=== PATIENT | male | born 1980 | race Two or more races ===

== ENCOUNTER 2025-02-16 06:10 | Inpatient (IN) | payer MEDICAID, OTHER ==
[~2025-02-16] VITALS: Ht 165.1 cm; Wt 85.1 kg
--- NOTE | 2025-02-16 07:04 | ED.PDOC ---
History of Present Illness HPI Comments 44-year-old male presents to the ER with a prior medical history of hypertension and a chief complaint of abdominal pain. Recurrent reports on having LLQ pain with nausea. Patient notes that he had a bowel movement yesterday but not today. Patient states on the pain only starting today but has been worsening. Patient's pressure in triage was 166/86. Denies chills, fever, /V/D, SOB, CP. No other associated symptoms, modifiers, recent injuries or sick contacts present at this time. Chief Complaint: Abdominal Pain Time Seen by MD: 06:45 Reviewed Notes: Nurses Notes, Medications, Allergies Information Source: Patient Mode of Arrival: Ambulatory Severity: Moderate Timing: Hours Duration: Since onset, Hours Prehospital treatment: None Past Medical History PAST MEDICAL HISTORY: HTN Surgical History: Denies all surgeries Family History Family History: Reviewed,noncontributory to illness, Unknown Social History Smoker: Non-Smoker Alcohol: Denies ETOH Use Drugs: Denies Drug Use Lives In: Home Constitutional: denies: chills, diaphoresis, fatigue, fever, malaise, sweats, weakness, others EENTM: denies: blurred vision, double vision, ear bleeding, ear discharge, ear drainage, ear pain, ear ringing, eye pain, eye redness, hearing loss, mouth pain, mouth swelling, nasal discharge, nose bleeding, nose congestion, nose pain, photophobia, tearing, throat pain, throat swelling, voice changes, others Respiratory: denies: cough, hemoptysis, orthopnea, SOB at rest, shortness of breath, SOB with excertion, stridor, wheezing, others Cardiovascular: denies: chest pain, dizzy spells, diaphoresis, Dyspnea on exertion, edema, irregular heart beat, left arm pain, lightheadedness, palpitations, PND, syncope, others Gastrointestinal: reports: abdominal pain, nausea; denies: abdomen distended, blood streaked bowels, constipated, diarrhea, dysphagia, difficulty swallowing, hematemesis, melena, poor appetite, poor fluid intake, rectal bleeding, rectal pain, vomiting, others Genitourinary: denies: burning, dysuria, flank pain, frequency, hematuria, incontinence, penile discharge, penile sore, pain, testicle pain, testicle swelling, urgency, others Neurological: denies: dizziness, fainting, headache, left sided numbness, left sided weakness, numbness, paresthesia, pre-existing deficit, right sided numbness, right sided weakness, seizure, speech problems, tingling, tremors, weakness, others Musculoskeletal: denies: back pain, gout, joint pain, joint swelling, muscle pain, muscle stiffness, neck pain, others Integumetry: denies: bruises, change in color, change in hair/nails, dryness, laceration, lesions, lumps, rash, wounds, others Allergic/Immunocompromised: denies: Difficulty Healing, Frequent Infections, Hives, Itching, others Hematologic/Lymphatic: denies: anemia, blood clots, easy bleeding, easy bruising, swollen glands, others Endocrine: denies: excessive hunger, excessive sweating, excessive thirst, excessive urination, flushing, intolerance to cold, intolerance to heat, unexplained weight gain, unexplained weight loss, others Psychiatric: denies: anxiety, bipolar disorder, depression, hopeless, panic disorder, schizophrenia, sleepless, suicidal, others All Other Systems: Reviewed and Negative Physical Exam General Appearance: Moderate Distress, Normal HEENT: Normal ENT Inspection, Pharynx Normal, TMs Normal Neck: Full Range of Motion, Non-Tender, Normal, Normal Inspection Respiratory: Chest Non-Tender, Lungs Clear, No Accessory Muscle Use, No Respiratory Distress, Normal Breath Sounds Cardiovascular: No Edema, No JVD, No Murmur, No Gallop, Normal Peripheral Pulses, Regular Rate/Rhythm Breast Exam: Deferred Gastrointestinal: No Organomegaly, Non Tender, No Pulsatile Mass, Normal Bowel Sounds, Soft Genitalia: Deferred Pelvic: Deferred Rectal: Deferred Extremities: No calf tenderness, Normal capillary refill, Normal inspection, Normal range of motion, Non-tender, No pedal edema Musculoskeletal : Apperance: Normal Neurologic: Alert, vp of global marketing II-XII nml as Tested, No Motor Deficits, Normal Affect, Normal Mood, No Sensory Deficits Cerebellar Function: Normal Reflexes: Normal Skin: Dry, Normal Color, Warm Peripheral Pulses: 3+ Radial (R), 3+ Radial (L) Lymphatic: No Adenopathy Was a procedure done? Was a procedure done?: No Differential Dx Considerations may include: Ileus Electrolyte imbalance X-Ray, Labs, Meds, VS Vital Signs Date Time Temp Pulse Resp B/P (MAP) Pulse Ox O2 Delivery O2 Flow Rate FiO2 7/6/25 06:54 98.8 54 18 166/86 (112) 97 98.8 Lab Test 02/16/25 06:42 Range/Units White Blood Count 11.8 H 4.4-10.8 10^3/uL Red Blood Count 5.01 4.5-5.90 10^6/uL Hemoglobin 15.5 13.5-17.5 g/dL Hematocrit 44.9 41.0-53.0 % Mean Corpuscular Volume 89.7 80.0-100.0 fL Mean Corpuscular Hemoglobin 31.0 28.0-32.0 pg Mean Corpuscular Hemoglobin Concent 34.5 32.0-36.0 g/dL Red Cell Distribution Width 13.9 11.8-14.3 % Platelet Count 226 140-450 10^3/uL Mean Platelet Volume 8.6 6.9-10.8 fL Neutrophils (%) (Auto) 83.8 H 37.0-80.0 % Lymphocytes (%) (Auto) 11.3 10.0-50.0 % Monocytes (%) (Auto) 4.1 0.0-12.0 % Eosinophils (%) (Auto) 0.6 0.0-7.0 % Basophils (%) (Auto) 0.2 0.0-2.0 % Neutrophils # (Auto) 9.9 H 1.6-8.6 10 ^3/uL Lymphocytes # (Auto) 1.3 0.4-5.4 10 ^3/uL Monocytes # (Auto) 0.5 0-1.3 10 ^3/uL Eosinophils # (Auto) 0.1 0-0.8 10 ^3/uL Basophils # (Auto) 0 0-0.2 10 ^3/uL Nucleated Red Blood Cells 0.0 % Sodium Level 140 136-145 mmol/L Potassium Level 3.6 3.5-5.1 mmol/L Chloride Level 106 98-107 mmol/L Carbon Dioxide Level 23 20-31 mmol/L Anion Gap 11 5-15 Blood Urea Nitrogen 13 9-23 mg/dL Creatinine 1.20 0.700-1.30 mg/dL Glomerular Filtration Rate Calc 77 >90 mL/min BUN/Creatinine Ratio 10.8 10.0-20.0 Serum Glucose 157 H 74-106 mg/dL Calcium Level 10.2 8.7-10.4 mg/dL Patient alert. Complaining of abdominal pain. Vitals stable. Answering questions. Blood pressure elevated. Blood sugar elevated. WBC elevated. Possible diverticulitis. Establish intravenous access. Was given fluids. Was given Zosyn. Explained to the patient. Continue to monitor. Time of 1ST Reevaluation: 07:15 Reevaluation 1ST: Unchanged Patient Education/Counseling: Diagnosis, Treatment, Prognosis Family Education/Counseling: No Family Present SEPSIS Sepsis Screen Physician Orders Urinalysis (02/16/25 06:36) Vital Signs Date Time Temp Pulse Resp B/P (MAP) Pulse Ox O2 Delivery O2 Flow Rate FiO2 02/16/25 06:54 98.8 54 18 166/86 (112) 97 98.8 Laboratory Tests Test 02/16/25 06:42 White Blood Count 11.8 10^3/uL (4.4-10.8) H Departure 1 Departure Time of Disposition: 07:30 Impression: Primary Impression: Acute abdominal pain Additional Impressions: Non-specific colitis Uncontrolled diabetes mellitus Qualified Codes: E13.65 - Other specified diabetes mellitus with hyperglycemia HTN (hypertension) Qualified Codes: I10 - Essential (primary) hypertension Disposition: ADMITTED INPATIENT Admit to: Med Surg Condition: Guarded Critical Care Note Critical Care Time?: No Stability Stability form required: No Heart Score Heart Score: Heart Score Response (Comments) Value History N/A 0 EKG N/A 0 Age N/A 0 Risk Factors N/A 0 Troponin N/A 0 Total 0 I personally scribed for МАРИЯ BARRETO MD ([email or web address]) on 02/16/25 at 07:04. Electronically submitted by Yves Martinez ([email or web address]). МАРИЯ BARRETO MD Feb 16, 2025 07:04
[2025-02-16 07:11] LABS: Hematocrit 44.9 % (41.0-53.0); Hemoglobin 15.5 g/dL (13.5-17.5); Mean Corpuscular Hemoglobin 31.0 pg (28.0-32.0); Mean Corpuscular Volume 89.7 fL (80.0-100.0); Nucleated Red Blood Cells % 0.0 %
[2025-02-16 07:16] LABS: Chloride 106 mmol/L (98-107); Potassium 3.6 mmol/L (3.5-5.1); Sodium 140 mmol/L (136-145)
[2025-02-16 07:17] LABS: Anion Gap 11 (5-15); Calcium 10.2 mg/dL (8.7-10.4); Carbon Dioxide 23 mmol/L (20-31)
[2025-02-16 07:22] LABS: BUN/Creatinine Ratio 10.8 (10.0-20.0); Blood Urea Nitrogen 13 mg/dL (9-23); Glucose 157 mg/dL (74-106)
[2025-02-16 07:25] VITALS: PULSE 111; PULSE 51; RESP 17; RESP 18; O2SAT 97; O2SAT 98
[2025-02-16 07:46] VITALS: PULSE 61; RESP 16; O2SAT 95
[2025-02-16] MEDS: ONDANSETRON HCL 4 MG/2 ML VIAL IV ONE (08:10)
[2025-02-16] MEDS: SODIUM CHLORIDE 0.9% 1,000 ML IV ONE (08:10)
[2025-02-16] MEDS: MORPHINE SULFATE INJ 2 MG/ml SYRG IV ONE (08:11)
[2025-02-16] MEDS: PIPERACILLIN-TAZOB 3.375GM 100 ML IV ONE (08:11)
[2025-02-16] MEDS ORDERED: hydrALAZINE HCL 20 MG/ML VL IV PRN (08:15)
[2025-02-16 08:47] LABS: Alanine Aminotransferase 28 U/L (7-40); Cholesterol 176 mg/dL (< 200); HDL Cholesterol 41 mg/dL (40-59)
[2025-02-16 08:50] LABS: Triglycerides 244 mg/dL (< 150)
--- NOTE | 2025-02-16 09:13 | DVH ---
CT CT AB PEL WO CON-NO ORAL OR IV INDICATION: abd pain EXAM DATE: 02/16/2025 08:36 AM COMPARISON: None RADIATION DOSE: CTDIvol: 11.47 mGy, DLP: 652.38 mGy*cm PROCEDURE: Helical CT images were obtained of the abdomen and pelvis without IV contrast Sagittal and coronal reconstructions are provided. ORAL CONTRAST: None. ADDITIONAL IMAGES / REFORMATS: None All C T scans at this medical facility are performed using dose modulation techniques as appropriate to a p erformed exam including the following: Automated exposure control was utilized; adjustment of the MA and/or KV according to patient size; and use of iterative reconstruction technique. FINDINGS: LUNG BASE: Normal. LIVER: Normal. GALLBLADDER AND BILIARY TREE: No calcified gallstones. Normal caliber wall. No intra- or extrahepatic biliary ductal dilation. PANCREAS: Normal. SPLEEN: Normal. BOWEL: There is moderate colonic diverticulosis.. The appendix appears normal. ADRENALS: Normal. KIDNEYS AND URETER: There is a 3 mm left distal ureteral kidney stone with mild hydronephrosis and p erinephric fat stranding. BLADDER: Normal. REPRODUCTIVE ORGANS: Normal. LYMPH NODES:No lymphadenopathy. PERITONEUM: No ascites or free air. No other fluid collection. VESSELS: Scattered atherosclerotic calcifications are noted. RETROPERITONEUM: Normal. ABDOMINAL WALL: Normal. BONES: Scattered osseous degenerative changes are noted. IMPRESSION: 3 mm left distal ureteral kidney stone with mild hydronephrosis and perinephric fat stranding.
[2025-02-16] MEDS ORDERED: ACETAMINOPHEN 325 MG TAB PO PRN (09:45)
[2025-02-16] MEDS ORDERED: MORPHINE SULFATE INJ 2 MG/ml SYRG IV PRN (09:45)
[2025-02-16] MEDS ORDERED: HYDROcodone-ACET 5/325MG TAB PO PRN (09:45)
[2025-02-16] MEDS ORDERED: ONDANSETRON HCL 4 MG/2 ML VIAL IV PRN (09:45)
--- NOTE | 2025-02-16 10:02 | DVHHP2 ---
History of Present Illness Reason for Visit: Left lower quadrant pain History of Present Illness A 44-year-old male presents to the emergency department with a chief complaint of left lower abdominal pain that began early this morning. The pain is localized to the left lower quadrant and radiates towards the left flank. He de scribed the pain as constant and sharp, and it is associated with nausea and a sensation of urinary retention. He denies vomiting, diarrhea, or constipation and he reports normal bowel movement yesterday. His past medical history includes hypertension, which is currently controlled through diet and lifestyle modifications. A CT scan of the abdomen and pelvis performed in the emergency department reveals a 3 mm left distal ureteral stone with mild hydronephrosis and perinephric fat stranding. Past Medical History As stated in HPI Past Surgical History Denies Family History Reviewed, non-contributory to the management of this case. Past Social History The patient lives at home, denies smoking, alcohol or illicit drugs abuse. Review of Systems Constitutional: Yes: Malaise; No: Fever, Chills, Sweats, Weakness, Other Eyes: No: Pain, Vision change, Conjunctivae inflammation, Eyelid inflammation, Other, Redness ENT: No: Ear pain, Ear discharge, Nose pain, Nose discharge, Nose congestion, Mouth pain, Mouth swelling, Throat pain, Throat swelling, Other Respiratory: No: Cough, Dry, Shortness of breath, SOB with excertion, Wheezing, Hemoptysis, Pleuritic Pain, Sputum, Wheezing, Other Cardiovascular: No: Chest Pain, Palpitations, Orthopnea, Paroxysmal Noc. Dyspnea, Edema, Lt Headedness, Other Gastrointestinal: Nausea, Abdominal Pain, Other; No: Vomiting, Diarrhea, Constipation, Melena, Hematochezia Genitourinary: No Dysuria, No Frequency, No Incontinence, No Hematuria; Retention, Other (Left flank pain) Musculoskeletal: No: other, neck pain, shoulder pain, arm pain, back pain, hand pain, leg pain, foot pain Skin: No: Rash, Lesions, Jaundice, Bruising, Other Neurological: No: Weakness, Numbness, Incoordination, Change in speech, Confu kathryn, Seizures, Other Allergies: Coded Allergies: NO KNOWN ALLERGIES (Unverified , 02/16/25) Medications Current Medications Medications Dose Ordered Sig/Tiarra Route Start Time Stop Time Status Last Admin Dose Admin Hydralazine HCl 10 mg Q6HP PRN IV 02/16/25 08:15 Exam Vital Signs Vital Signs Date Time Temp Pulse Resp B/P (MAP) Pulse Ox O2 Delivery O2 Flow Rate FiO2 02/16/25 08:40 68 16 132/77 02/16/25 07:25 99.1 98 99.1 02/16/25 07:25 Room Air* 0 21 General Appearance: Alert, Oriented X3, Cooperative, mild distress HEENT: Atraumatic, PERRLA, EOMI, Mucous membr. moist/pink Respiratory: Clear to auscultation, Normal air movement Cardiovascular: Regular rate, Normal S1, Normal S2 Abdominal: Normal bowel sounds, Soft, Other (Left lower quadrant mild tenderness in palpation, left CVA tenderness) Extremities: No clubbing, No cyanosis, No edema, Normal pulses Skin: No rashes, No breakdown, No significant lesion Neuro: Normal speech, Normal tone Psych/Mental Status: Mental status NL Labs/Xrays Labs Test 02/16/25 06:42 Range/Units White Blood Count 11.8 H 4.4-10.8 10^3/uL Red Blood Count 5.01 4.5-5.90 10^6/uL Hemoglobin 15.5 13.5-17.5 g/dL Hematocrit 44.9 41.0-53.0 % Mean Corpuscular Volume 89.7 80.0-100.0 fL Mean Corpuscular Hemoglobin 31.0 28.0-32.0 pg Mean Corpuscular Hemoglobin Concent 34.5 32.0-36.0 g/dL Red Cell Distribution Width 13.9 11.8-14.3 % Platelet Count 226 140-450 10^3/uL Mean Platelet Volume 8.6 6.9-10.8 fL Neutrophils (%) (Auto) 83.8 H 37.0-80.0 % Lymphocytes (%) (Auto) 11.3 10.0-50.0 % Monocytes (%) (Auto) 4.1 0.0-12.0 % Eosinophils (%) (Auto) 0.6 0.0-7.0 % Basophils (%) (Auto) 0.2 0.0-2.0 % Neutrophils # (Auto) 9.9 H 1.6-8.6 10 ^3/uL Lymphocytes # (Auto) 1.3 0.4-5.4 10 ^3/uL Monocytes # (Auto) 0.5 0-1.3 10 ^3/uL Eosinophils # (Auto) 0.1 0-0.8 10 ^3/uL Basophils # (Auto) 0 0-0.2 10 ^3/uL Nucleated Red Blood Cells 0.0 % Sodium Level 140 136-145 mmol/L Potassium Level 3.6 3.5-5.1 mmol/L Chloride Level 106 98-107 mmol/L Carbon Dioxide Level 23 20-31 mmol/L Anion Gap 11 5-15 Blood Urea Nitrogen 13 9-23 mg/dL Creatinine 1.20 0.700-1.30 mg/dL Glomerular Filtration Rate Calc 77 >90 mL/min BUN/Creatinine Ratio 10.8 10.0-20.0 Serum Glucose 157 H 74-106 mg/dL Hemoglobin A1c 5.2 <5.7 % A1C Calcium Level 10.2 8.7-10.4 mg/dL Aspartate Amino Transferase (AST) 31 13-40 U/L Alanine Aminotransferase (ALT) 28 7-40 U/L Triglycerides Level 244 H < 150 mg/dL Cholesterol Level 176 < 200 mg/dL LDL Cholesterol 110 H < 100 mg/dL HDL Cholesterol 41 40-59 mg/dL PROCEDURE(s): ABPL - CT AB PEL WO CON-NO ORAL OR IV REASON: abd pain ORDER NUMBER(s): [id number], ACCESSION NUMBER(s): [id number] CT CT AB PEL WO CON-NO ORAL OR IV INDICATION: abd pain EXAM DATE: 02/16/2025 08:36 AM COMPARISON: None RADIATION DOSE: CTDIvol: 11.47 mGy, DLP: 652.38 mGy*cm PROCEDURE: Helical CT images were obtained of the abdomen and pelvis without IV contrast Sagittal and coronal reconstructions are provided. ORAL CONTRAST: None. ADDITIONAL IMAGES / REFORMATS: None All CT scans at this medical facility are performed using dose modulation techniques as appropriate to a performed exam including the following: Automated exposure control was utilized; adjustment of the MA and/or KV according to patient size; and use of iterative reconstruction technique. FINDINGS: LUNG BASE: Normal. LIVER: Normal. GALLBLADDER AND BILIARY TREE: No calcified gallstones. Normal caliber wall. No intra- or extrahepatic biliary ductal dilation. PANCREAS: Normal. SPLEEN: Normal. BOWEL: There is moderate colonic diverticulosis.. The appendix appears normal. ADRENALS: Normal. KIDNEYS AND URETER: There is a 3 mm left distal ureteral kidney stone with mild hydronephrosis and perinephric fat stranding. BLADDER: Normal. REPRODUCTIVE ORGANS: Normal. LYMPH NODES:No lymphadenopathy. PERITONEUM: No ascites or free air. No other fluid collection. VESSELS: Scattered atherosclerotic calcifications are noted. RETROPERITONEUM: Normal. ABDOMINAL WALL: Normal. BONES: Scattered osseous degenerative changes are noted. IMPRESSION: 3 mm left distal ureteral kidney stone with mild hydronephrosis and perinephric fat stranding. Assessment/Plan Assessment/Plan # left flank pain # obstructive uropathy due to nephrolithiasis #3 mm left distal ureteral kidney stone with mild hydronephrosis and perinephric fat stranding # acute urinary retention # leukocytosis, rule out UTI/cystitis # nausea * Admit to medical-surgical unit * Urology consult * Pain control,including NSAIDS, alpha-cesar therapy Tamsulosin * Strain all urine for stones * Monitor for fever, worsening renal function, for signs of sepsis * IV fluid * Empiric antibiotics ceftriaxone * Blood in urine culture * Indwelling urinary catheter * Antiemetics # hypertension, controlled by diet * Hydralazine as needed * Monitor, DASH diet # obesity * Lifestyle modification counseled with diet, regular exercise and weight loss Medical plan discussed with patient and RN Plan discussed with: Patient, Other (RN) My Orders Orders - ROMI RAM Procedure Category Date Status Time Ct Ab Pel Wo Con-No CT 02/16/25 Resulted Oral Or Iv 07:59 Hydralazine Injection PHA 02/16/25 In Process (Apresoline Inject 08:15 Date of Service: Feb 16, 2025 Billing Provider: ROMI RAM Common Visit Codes: [id number] INP/OBS CARE (HIGH) Consultation Codes: 17209-[id number] CONSULT <45MIN ROMI RAM Feb 16, 2025 10:02
[2025-02-16 10:13] LABS: Urine Protein, UAD Negative (Negative)
[2025-02-16] MEDS: KETOROLAC TROMETH 30 MG/ML 1ML VIAL IV ONE (10:34)
[2025-02-16] MEDS: TAMSULOSIN HYDROCHLORIDE 0.4 MG CAP PO ONE (10:35)
[2025-02-16] MEDS: SODIUM CHLORIDE 0.9% 1,000 ML IV SCH (10:35)
[2025-02-16 12:13] VITALS: BP 126/64; PULSE 62; RESP 16; TEMP 97.2; O2SAT 97
[2025-02-16 12:27] VITALS: BP 126/64; PULSE 62; RESP 19; TEMP 97.2; O2SAT 96
[2025-02-16 16:37] VITALS: BP 126/76; PULSE 64; RESP 19; TEMP 97.8; O2SAT 97
[2025-02-16 21:00] VITALS: BP 119/71; PULSE 54; RESP 16; TEMP 98; O2SAT 96
[2025-02-17] VITALS (7 sets, daily range): BP systolic 124–139; BP diastolic 78–80; PULSE 51–68; RESP 17–20; TEMP 97.4–98.1; O2SAT 96–98
[2025-02-17] MEDS: cefTRIAXone 1GM/50ML D5W 50 ML IV SCH (08:59)
[2025-02-17 09:08] LABS: Hematocrit 43.1 % (41.0-53.0); Hemoglobin 15.0 g/dL (13.5-17.5); Mean Corpuscular Hemoglobin 31.4 pg (28.0-32.0); Mean Corpuscular Volume 90.4 fL (80.0-100.0); Nucleated Red Blood Cells % 0.1 %
[2025-02-17 09:26] LABS: Alanine Aminotransferase 22 U/L (7-40); Albumin 4.2 g/dL (3.2-4.8); Alkaline Phosphatase 66 U/L (46-116); Anion Gap 8 (5-15); BUN/Creatinine Ratio 12.8 (10.0-20.0); Bilirubin, Total 0.8 mg/dL (0.2-1.0); Blood Urea Nitrogen 11 mg/dL (9-23); Calcium 9.7 mg/dL (8.7-10.4); Carbon Dioxide 26 mmol/L (20-31); Potassium 3.8 mmol/L (3.5-5.1); Sodium 142 mmol/L (136-145); Total Protein 6.7 g/dL (5.7-8.2)
[2025-02-17 09:27] LABS: Chloride 108 mmol/L (98-107); Glucose 107 mg/dL (74-106)
[2025-02-17] MEDS: PANTOPRAZOLE 40 MG/10 ML VIAL INJ IV SCH (10:11)
[2025-02-17 12:06] LABS: INR 1.03 (0.9-1.15); Partial Thromboplastin Time 25.5 SEC (24.5-34.5); Prothrombin Time 10.9 sec (9.3-11.8)
--- NOTE | 2025-02-17 14:16 | DVHPNRES ---
Progress Note Date Seen: Feb 17, 2025 Resident Creating Document: KARISSA COLLINS RESIDENT Medical Necessity Reason Pt with a Central, PICC or Fol: No Subjective Review of Systems 44 year old male presents to the emergency department with chief complaints of left lower abdominal pain,9/10 intensity that began early this morning. The pain is localized to the left lower quadrant and radiates towards the left flank. He describes the pain as constant and sharp, and is associated with nausea but no vomiting and he has sense of urinary retention. he denies any fever or chills, vomiting, diarrhea, constipation. PMH: Patient states he has hypertension controlled through diet and lifestyle modification. PSH: Denies Family history: Reviewed, his mother had kidney stones and hypertension Social history: The patient lives at home, denies smoking currently, sees he stopped 10 years ago before which he used to have 2 packs per week. He reports drinking socially and denies any drug use. ROS: Patient was seen and examined by me in the bedside. Patient reports his pain has decreased and there is no nausea anymore. Overnight events reviewed, no new complaints reported. Rest of the ROS is negative Patient reports: Feels better Objective vital signs Vital Sign Date Time Temp Pulse Resp B/P (MAP) Pulse Ox O2 Delivery O2 Flow Rate FiO2 02/17/25 13:00 97.6 54 20 127/80 (96) 97 97.6 02/17/25 07:43 Room Air* 0 21 Total Intake and Output 02/16/25 02/16/25 02/17/25 15:00 23:00 07:00 Intake Total 1200 ml 560 ml 800 ml Balance 1200 ml 560 ml 800 ml medications Current Medications Medications Dose Ordered Sig/Tiarra Route Start Time Stop Time Status Last Admin Dose Admin Hydralazine HCl 10 mg Q6HP PRN IV 02/16/25 08:15 Sodium Chloride 1,000 ml @ 100 mls/hr Q10H IV 02/16/25 09:45 02/17/25 05:03 100 MLS/HR Acetaminophen/ Hydrocodone Bitart 1 tab Q4HP PRN PO 02/16/25 09:45 Ondansetron HCl 4 mg Q4HP PRN IV 02/16/25 09:45 Acetaminophen 650 mg Q6HP PRN PO 02/16/25 09:45 Morphine Sulfate 2 mg Q4HPRN PRN IV 02/16/25 09:45 Tamsulosin HCl 0.4 mg QPM PO 02/17/25 18:00 Ceftriaxone Sodium 50 ml @ 100 mls/hr DAILY@09 IV 02/17/25 09:00 02/17/25 08:59 100 MLS/HR Pantoprazole Sodium 40 mg DAILY IV 02/17/25 09:15 02/17/25 10:35 40 MG Examination Pt is lying on bed General Appearance: Alert, Oriented X3, Cooperative, Not in acute distress HEENT: Atraumatic, Mucous membranes moist/pink Respiratory: Clear to auscultation, Normal air movement, No added sounds Cardiovascular: Regular rate, Normal S1, Normal S2, No murmurs Abdominal: Active bowel sounds, Soft, no distention, mild Tenderness in left lower quadrant Extremities: No edema, Normal pulses, No tenderness/swelling Skin: No breakage in the skin, rashes Neuro: Normal speech, sensorimotor deficits none Psych/Mental Status: Mental status NL, Mood NL Nurse was there as continuity tester during examination laboratory and microbiology Laboratory Tests 02/17/25 08:37 Test 02/17/25 08:37 Range/Units Serum Glucose 107 H 74-106 mg/dL Microbiology Date/Time Source Procedure Growth Status 02/16/25 10:00 Blood Blood Culture - Preliminary NO GROWTH AFTER 24 HOURS OF INCUBATION. Resulted 02/16/25 07:25 Voided Urine Urine Culture - Preliminary Resulted Labs and/or images reviewed: Labs reviewed by me, Image(s) reviewed by me Problem List/Assessment/Plan Problem List/Assessment/Plan # Left flank pain, obstructive uropathy due to Rt nephrolithiasis # Acute urinary retention -CT reveals 3 mm left distal ureteral kidney stone with mild hydronephrosis -Urology consult pending -IVF -Flomax -strain all urine -pain management with the morphine as needed -Zofran as needed # ? Acute pyelonephritis likely from above # reactive leukocytosis likely due to above -CTshows perinephric fat stranding -Urine culture sent -Patient started on ceftriaxone # Borderline hypertension -Continue to monitor # Obesity -Lifestyle modification counseled with diet, regular exercise and weight loss GI prophylaxis: Protonix DVT prophylaxis: not indicated Diet: low-sodium, cardiac diet Goals of care discussed with the patient for more than 27 minutes: Full code status Case discussed with Dr. Rodríguez, patient and nurse. Plan discussed with: Patient, Other (RN) Date of Service: Feb 17, 2025 Billing Provider: LILLIAM RODRÍGUEZ MD Common Visit Codes: [id number] INP/OBS CARE(HIGH) KARISSA COLLINS RESIDENT Feb 17, 2025 14:16 DAVID CASTILLO RESIDENT Feb 17, 2025 14:41 LILLIAM RODRÍGUEZ MD Feb 17, 2025 18:54
[2025-02-17] MEDS: TAMSULOSIN HYDROCHLORIDE 0.4 MG CAP PO SCH (17:53)
[2025-02-17 18:18] LABS: Urine Protein, UAD Negative (Negative)
[2025-02-17 18:42] LABS: Amphetamine Screen, Urine Neg (NEGATIVE); Barbiturate Scree,Urine Neg (NEGATIVE); Benzodiazephine Screen, Urine Neg (NEGATIVE); Cannabinoid Screen, Urine Neg (NEGATIVE); Cocaine Screen, Urine Neg (NEGATIVE); Opiate Scree,Urine Neg (NEGATIVE); Phencyclidine Screen, Urine Neg (NEGATIVE)
[2025-02-18 01:00] VITALS: BP 124/74; PULSE 60; RESP 18; TEMP 97.8; O2SAT 99
[2025-02-18 05:00] VITALS: BP 122/82; PULSE 60; RESP 20; TEMP 97.7; O2SAT 97
[2025-02-18] MEDS: MORPHINE SULFATE INJ 2 MG/ml SYRG IV ONE (07:35)
[2025-02-18 08:00] VITALS: PULSE 65; RESP 17; O2SAT 98
[2025-02-18 09:00] VITALS: BP 118/72; PULSE 60; RESP 17; TEMP 97.9; O2SAT 98
[2025-02-18] MEDS: SODIUM CHLORIDE 0.9% 1,000 ML IV SCH (09:10)
--- NOTE | 2025-02-18 11:04 | DVH ---
Exam: XY KUB ABDOMEN SINGLE VIEW Indication: reassess stone Comparison: None Technique: 1 radiographic views of the abdomen. Findings: Nonspecific bowel-gas pattern. There is no definite evidence for pneumoperitoneum. No appreciable radiopaque renal stone. Impression: Nonspecific bowel-gas pattern.
--- NOTE | 2025-02-18 11:39 | DVHINCON2 ---
Date of service: Feb 18, 2025 Referring Physician Hospitalist Reason for Consultation 3 mm left distal ureteral calculus History of Present Illness 44-year-old male presents to the emergency department with a chief complaint of left lower abdominal pain that began early this morning. The pain is localized to the left lower quadrant and radiates towards the left flank. He described the pain as constant and sharp, and it is associated with nausea and a sensation of urinary retention. He denies vomiting, diarrhea, or constipation and he reports normal bowel movement yesterday. His past medical history includes hypertension, which is currently controlled through diet and lifestyle modifications. A CT scan of the abdomen and pelvis performed in the emergency department reveals a 3 mm left distal ureteral stone with mild hydronephrosis and perinephric fat stranding. Past Medical History Family History: Hypertension G8 MOTHER Kidney stones G8 MOTHER Allergies: Coded Allergies: NO KNOWN ALLERGIES (Unverified , 02/16/25) Current Medications Current Medications Medications (Trade) Dose Ordered Sig/Tiarra Route PRN Reason Start Time Stop Time Status Last Admin Tamsulosin HCl (Flomax) 0.4 mg QPM PO 02/17/25 18:00 02/17/25 17:53 Sodium Chloride 1,000 ml @ 175 mls/hr [id number] IV 02/18/25 08:45 02/18/25 09:10 Review of Systems Constitutional: Yes: Malaise; No: Fever, Chills, Sweats, Weakness, Other Eyes: No: Pain, Vision change, Conjunctivae inflammation, Eyelid inflammation, Other, Redness ENT: No: Ear pain, Ear discharge, Nose pain, Nose discharge, Nose congestion, Mouth pain, Mouth swelling, Throat pain, Throat swelling, Other Respiratory: No: Cough, Dry, Shortness of breath, SOB with excertion, Wheezing, Hemoptysis, Pleuritic Pain, Sputum, Wheezing, Other Cardiovascular: No: Chest Pain, Palpitations, Orthopnea, Paroxysmal Noc. Dyspnea, Edema, Lt Headedness, Other Gastrointestinal: Nausea, Abdominal Pain, Other; No: Vomiting, Diarrhea, Constipation, Melena, Hematochezia Genitourinary: No Dysuria, No Frequency, No Incontinence, No Hematuria; Retention, Other (Left flank pain) Musculoskeletal: No: other, neck pain, shoulder pain, arm pain, back pain, hand pain, leg pain, foot pain Skin: No: Rash, Lesions, Jaundice, Bruising, Other Neurological: No: Weakness, Numbness, Incoordination, Change in speech, Confusion, Seizures, Other Allergies: Coded Allergies: NO KNOWN ALLERGIES (Unverified , 02/16/25) Medications Current Medications Medications Dose Ordered Sig/Tiarra Route Start Time Stop Time Status Last Admin Dose Admin Hydralazine HCl 10 mg Q6HP PRN IV 02/16/25 08:15 Vital Signs Vital Signs Date Time Temp Pulse Resp B/P (MAP) Pulse Ox O2 Delivery O2 Flow Rate FiO2 02/18/25 09:00 97.9 60 17 118/72 (87) 98 97.9 02/18/25 08:00 Room Air* 0 21 Physical Exam Vital Signs Date Time Temp Pulse Resp B/P (MAP) Pulse Ox O2 Delivery O2 Flow Rate FiO2 02/16/25 08:40 68 16 132/77 02/16/25 07:25 99.1 98 99.1 02/16/25 07:25 Room Air* 0 21 General Appearance: Alert, Oriented X3, Cooperative, mild distress HEENT: Atraumatic, PERRLA, EOMI, Mucous membr. moist/pink Respiratory: Clear to auscultation, Normal air movement Cardiovascular: Regular rate, Normal S1, Normal S2 Abdominal: Normal bowel sounds, Soft, Other (Left lower quadrant mild tenderness in palpation, left CVA tenderness) Extremities: No clubbing, No cyanosis, No edema, Normal pulses Skin: No rashes, No breakdown, No significant lesion Neuro: Normal speech, Normal tone Psych/Mental Status: Mental status NL Labs/Diagnostic Data Labs Test 02/17/25 13:26 02/17/25 11:38 02/17/25 09:09 02/17/25 08:37 Range/Units Magnesium Level 1.8 1.6-2.6 mg/dL Thyroid Stimulating Hormone (TSH) 1.38 0.55-4.78 uIU/mL Prothrombin Time 10.9 9.3-11.8 sec Prothrombin Time INR 1.03 0.9-1.15 Activated Partial Thromboplast Time 25.5 24.5-34.5 SEC Lactic Acid Level 1.1 0.4-2.0 mmol/L Urine Color Colorless Yellow Urine Clarity Clear Clear Urine pH 7.5 5.0-9.0 Urine Specific [place] 1.007 1.001-1.035 Urine Protein Negative Negative Urine Ketones Negative Negative Urine Blood Trace H Negative /uL Urine Nitrite Negative Negative Urine Bilirubin Negative Negative Urine Urobilinogen Normal Negative mg/dL Urine Leukocyte Esterase Negative Negative /uL Urine RBC 3 0 - 3 /hpf Urine Microscopic WBC < 1 0-3 /HPF Urine Squamous Epithelial Cells None seen <5 /hpf Urine Bacteria None seen None Seen /hpf Urine Glucose Normal Normal mg/dL Urine Opiates Screen Neg NEGATIVE Urine Fentanyl Screen Neg NEGATIVE Urine Barbiturates Screen Neg NEGATIVE Urine Phencyclidine Screen Neg NEGATIVE Urine Amphetamines Screen Neg NEGATIVE Urine Benzodiazepines Screen Neg NEGATIVE Urine Cocaine Screen Neg NEGATIVE Urine Cannabinoids Screen Neg NEGATIVE White Blood Count 5.4 # 4.4-10.8 10^3/uL Red Blood Count 4.77 4.5-5.90 10^6/uL Hemoglobin 15.0 13.5-17.5 g/dL Hematocrit 43.1 41.0-53.0 % Mean Corpuscular Volume 90.4 80.0-100.0 fL Mean Corpuscular Hemoglobin 31.4 28.0-32.0 pg Mean Corpuscular Hemoglobin Concent 34.7 32.0-36.0 g/dL Red Cell Distribution Width 13.8 11.8-14.3 % Platelet Count 203 140-450 10^3/uL Mean Platelet Volume 8.6 6.9-10.8 fL Neutrophils (%) (Auto) 49.4 37.0-80.0 % Lymphocytes (%) (Auto) 41.3 10.0-50.0 % Monocytes (%) (Auto) 6.1 0.0-12.0 % Eosinophils (%) (Auto) 2.8 0.0-7.0 % Basophils (%) (Auto) 0.4 0.0-2.0 % Neutrophils # (Auto) 2.7 1.6-8.6 10 ^3/uL Lymphocytes # (Auto) 2.2 0.4-5.4 10 ^3/uL Monocytes # (Auto) 0.3 0-1.3 10 ^3/uL Eosinophils # (Auto) 0.2 0-0.8 10 ^3/uL Basophils # (Auto) 0 0-0.2 10 ^3/uL Nucleated Red Blood Cells 0.1 % Sodium Level 142 136-145 mmol/L Potassium Level 3.8 3.5-5.1 mmol/L Chloride Level 108 H 98-107 mmol/L Carbon Dioxide Level 26 20-31 mmol/L Anion Gap 8 5-15 Blood Urea Nitrogen 11 9-23 mg/dL Creatinine 0.86 0.700-1.30 mg/dL Glomerular Filtration Rate Calc 111 >90 mL/min BUN/Creatinine Ratio 12.8 10.0-20.0 Serum Glucose 107 H 74-106 mg/dL Calcium Level 9.7 8.7-10.4 mg/dL Total Bilirubin 0.8 0.2-1.0 mg/dL Aspartate Amino Transferase (AST) 22 13-40 U/L Alanine Aminotransferase (ALT) 22 7-40 U/L Alkaline Phosphatase 66 46-116 U/L Total Protein 6.7 5.7-8.2 g/dL Albumin 4.2 3.2-4.8 g/dL Test 02/16/25 06:42 Range/Units Hemoglobin A1c 5.2 <5.7 % A1C Triglycerides Level 244 H < 150 mg/dL Cholesterol Level 176 < 200 mg/dL LDL Cholesterol 110 H < 100 mg/dL HDL Cholesterol 41 40-59 mg/dL Microbiology Date/Time Source Procedure Growth Status 02/16/25 10:00 Blood Blood Culture - Preliminary NO GROWTH AFTER 48 HOURS OF INCUBATION. Resulted 02/16/25 07:25 Voided Urine Urine Culture - Final Complete PATIENT: OLIMPIA SAMUELS ACCT: [id number] UNIT: [id number] : 1980 LOC: ER ROOM / BED: / AGE / SEX: 44 / M ADM STATUS: REG ER SERVICE [id number] ORDERING PHYSICIAN: ROMI RAM PROCEDURE(s): ABPL - CT AB PEL WO CON-NO ORAL OR IV REASON: abd pain ORDER NUMBER(s): [id number], ACCESSION NUMBER(s): [id number] CT CT AB PEL WO CON-NO ORAL OR IV INDICATION: abd pain EXAM DATE: 02/16/2025 08:36 AM COMPARISON: None RADIATION DOSE: CTDIvol: 11.47 mGy, DLP: 652.38 mGy*cm PROCEDURE: Helical CT images were obtained of the abdomen and pelvis without IV contrast Sagittal and coronal reconstructions are provided. ORAL CONTRAST: None. ADDITIONAL IMAGES / REFORMATS: None All CT scans at this medical facility are performed using dose modulation techniques as appropriate to a performed exam including the following: Automated exposure control was utilized; adjustment of the MA and/or KV according to patient size; and use of iterative reconstruction technique. FINDINGS: LUNG BASE: Normal. LIVER: Normal. GALLBLADDER AND BILIARY TREE: No calcified gallstones. Normal caliber wall. No intra- or extrahepatic biliary ductal dilation. PANCREAS: Normal. SPLEEN: Normal. BOWEL: There is moderate colonic diverticulosis.. The appendix appears normal. ADRENALS: Normal. KIDNEYS AND URETER: There is a 3 mm left distal ureteral kidney stone with mild hydronephrosis and perinephric fat stranding. BLADDER: Normal. REPRODUCTIVE ORGANS: Normal. LYMPH NODES:No lymphadenopathy. PERITONEUM: No ascites or free air. No other fluid collection. VESSELS: Scattered atherosclerotic calcifications are noted. RETROPERITONEUM: Normal. ABDOMINAL WALL: Normal. BONES: Scattered osseous degenerative changes are noted. IMPRESSION: 3 mm left distal ureteral kidney stone with mild hydronephrosis and perinephric fat stranding. ATED BY: FRANK PAZ MD DICTATED DATE/TIME: 02/16/25910 SIGNED BY: FRANK PAZ MD SIGNED DATE/TIME: 02/16/25910 Assessment Left distal ureteral calculus, 3 mm Mild left hydronephrosis Left flank Plan/Recommendation Expulsive measures If fail conservative management, we will plan for lithotripsy with possible stent Plan discussed with: Patient, Other MARTIN BLANKENSHIP MD Feb 18, 2025 11:39
[2025-02-18 13:00] VITALS: BP 140/87; PULSE 57; RESP 18; TEMP 98.1; O2SAT 99
[2025-02-18] MEDS ORDERED: TAMS-35 PO (14:19)
[2025-02-18] MEDS ORDERED: CEPH250C PO (14:19)
[2025-02-18] MEDS: MANNITOL FTV 25% 12.5 GM/50 ML 50 ML IV ONE (14:24)
--- NOTE | 2025-02-18 14:26 | DVHDSRES ---
Discharge Summary Date of Admission Resident Creating Document: KARISSA COLLINS RESIDENT Feb 16, 2025 at 09:38 Date of Discharge: Feb 18, 2025 Admitting Diagnosis # Left flank pain, obstructive uropathy due to Rt nephrolithiasis Labs/Diagnostic Data: Laboratory Results Test 02/17/25 13:26 02/17/25 11:38 02/17/25 09:09 02/17/25 08:37 Magnesium Level 1.8 mg/dL (1.6-2.6) Thyroid Stimulating Hormone (TSH) 1.38 uIU/mL (0.55-4.78) Prothrombin Time 10.9 sec (9.3-11.8) Prothrombin Time INR 1.03 (0.9-1.15) Activated Partial Thromboplast Time 25.5 SEC (24.5-34.5) Lactic Acid Level 1.1 mmol/L (0.4-2.0) Urine Color Colorless (Yellow) Urine Clarity Clear (Clear) Urine pH 7.5 (5.0-9.0) Urine Specific [place] 1.007 (1.001-1.035) Urine Protein Negative (Negative) Urine Ketones Negative (Negative) Urine Blood Trace /uL (Negative) Urine Nitrite Negative (Negative) Urine Bilirubin Negative (Negative) Urine Urobilinogen Normal mg/dL (Negative) Urine Leukocyte Esterase Negative /uL (Negative) Urine RBC 3 /hpf (0 - 3) Urine Microscopic WBC < 1 /HPF (0-3) Urine Squamous Epithelial Cells None seen /hpf (<5) Urine Bacteria None seen /hpf (None Seen) Urine Glucose Normal mg/dL (Normal) Urine Opiates Screen Neg (NEGATIVE) Urine Fentanyl Screen Neg (NEGATIVE) Urine Barbiturates Screen Neg (NEGATIVE) Urine Phencyclidine Screen Neg (NEGATIVE) Urine Amphetamines Screen Neg (NEGATIVE) Urine Benzodiazepines Screen Neg (NEGATIVE) Urine Cocaine Screen Neg (NEGATIVE) Urine Cannabinoids Screen Neg (NEGATIVE) White Blood Count 5.4 10^3/uL (4.4-10.8) Red Blood Count 4.77 10^6/uL (4.5-5.90) Hemoglobin 15.0 g/dL (13.5-17.5) Hematocrit 43.1 % (41.0-53.0) Mean Corpuscular Volume 90.4 fL (80.0-100.0) Mean Corpuscular Hemoglobin 31.4 pg (28.0-32.0) Mean Corpuscular Hemoglobin Concent 34.7 g/dL (32.0-36.0) Red Cell Distribution Width 13.8 % (11.8-14.3) Platelet Count 203 10^3/uL (140-450) Mean Platelet Volume 8.6 fL (6.9-10.8) Neutrophils (%) (Auto) 49.4 % (37.0-80.0) Lymphocytes (%) (Auto) 41.3 % (10.0-50.0) Monocytes (%) (Auto) 6.1 % (0.0-12.0) Eosinophils (%) (Auto) 2.8 % (0.0-7.0) Basophils (%) (Auto) 0.4 % (0.0-2.0) Neutrophils # (Auto) 2.7 10 ^3/uL (1.6-8.6) Lymphocytes # (Auto) 2.2 10 ^3/uL (0.4-5.4) Monocytes # (Auto) 0.3 10 ^3/uL (0-1.3) Eosinophils # (Auto) 0.2 10 ^3/uL (0-0.8) Basophils # (Auto) 0 10 ^3/uL (0-0.2) Nucleated Red Blood Cells 0.1 % Sodium Level 142 mmol/L (136-145) Potassium Level 3.8 mmol/L (3.5-5.1) Chloride Level 108 mmol/L (98-107) Carbon Dioxide Level 26 mmol/L (20-31) Anion Gap 8 (5-15) Blood Urea Nitrogen 11 mg/dL (9-23) Creatinine 0.86 mg/dL (0.700-1.30) Glomerular Filtration Rate Calc 111 mL/min (>90) BUN/Creatinine Ratio 12.8 (10.0-20.0) Serum Glucose 107 mg/dL (74-106) Calcium Level 9.7 mg/dL (8.7-10.4) Total Bilirubin 0.8 mg/dL (0.2-1.0) Aspartate Amino Transferase (AST) 22 U/L (13-40) Alanine Aminotransferase (ALT) 22 U/L (7-40) Alkaline Phosphatase 66 U/L (46-116) Total Protein 6.7 g/dL (5.7-8.2) Albumin 4.2 g/dL (3.2-4.8) Test 02/16/25 06:42 Hemoglobin A1c 5.2 % A1C (<5.7) Triglycerides Level 244 mg/dL (< 150) Cholesterol Level 176 mg/dL (< 200) LDL Cholesterol 110 mg/dL (< 100) HDL Cholesterol 41 mg/dL (40-59) Other Laboratory Tests 02/17/25 08:37 Brief Hx & Hospital Course: 44 year old male presents to the emergency department with chief complaints of left lower abdominal pain,9/10 intensity that began early this morning. The pain is localized to the left lower quadrant and radiates towards the left flank. He describes the pain as constant and sharp, and is associated with nausea but no vomiting and he has sense of urinary retention. he denies any fever or chills, vomiting, diarrhea, constipation. PMH: Patient states he has hypertension controlled through diet and lifestyle modification. PSH: Denies Family history: Reviewed, his mother had kidney stones and hypertension Social history: The patient lives at home, denies smoking currently, sees he stopped 10 years ago before which he used to have 2 packs per week. He reports drinking socially and denies any drug use. Brief history of hospitalization: Patient had left flank pain due to obstructive uropathy due to right nephrolithiasis. He had acute urinary retention. CT revealed 3 mm left distal ureteral kidney stone with mild hydronephrosis. Intravenous fluids were given. Flomax started. Urine was drained. Pain management with morphine was given as needed. Zofran as needed. Possible acute pyelonephritis likely from nephrolithiasis, reactive leukocytosis likely due to pyelonephritis. CT showed perinephric fat stranding. Urine cultures were sent. Patient started on ceftriaxone antibiotic. For borderline hypertension patient was continued to be monitored. Four obesity Lifestyle modification counseled with diet, regular exercise and weight loss. Patient has been counseled about taking low protein diet and to keep himself hydrated, drink lots of water. Patient communicated understanding. He is stable now for discharge. Patient counselled on taking tamsulosin at night and cephalexin after discharge. Patient counseled about meeting a urologist outpatient. Pt is lying on bed General Appearance: Alert, Oriented X3, Cooperative, Not in acute distress HEENT: Atraumatic, Mucous membranes moist/pink Respiratory: Clear to auscultation, Normal air movement, No added sounds Cardiovascular: Regular rate, Normal S1, Normal S2, No murmurs Abdominal: Active bowel sounds, Soft, mildly distended, no tenderness Extremities: No edema, Normal pulses, No tenderness/swelling Skin: No breakage in the skin, rashes Neuro: Normal speech, sensorimotor deficits none Psych/Mental Status: Mental status NL, Mood NL Nurse was there as quality eng during examination Operations or Procedures CT AB PEL WO CON-NO ORAL OR IV IMPRESSION: 3 mm left distal ureteral kidney stone with mild hydronephrosis and perinephric fat stranding. Exam: XY KUB ABDOMEN SINGLE VIEW Impression: Nonspecific bowel-gas pattern. Condition at Discharge: Stable Final Diagnosis/Problems List # Left flank pain, obstructive uropathy due to Rt nephrolithiasis # Acute urinary retention # ? Acute pyelonephritis likely from above # Reactive leukocytosis likely due to above ruld out SIRS/Sepsis # Borderline hypertension # Obesity Discharge Disposition: Home Discharge Instruct/Medications Diet: Consistent carbohydrate, Cardiac 2g Na,low cholest Activity: No Restrictions, As Tolerated Follow Up/Referral: Follow-up with urology outpatient Scheduled Cephalexin (Keflex Capsule), 500 MG PO BID Tamsulosin Hcl (Flomax), 0.4 MG PO QPM Discharge Statement: "Patient was advised to return to the ER or call 911 if any headaches, dizziness, shortness of breath, chest pain, abdominal pain, bleeding, fevers, or worsening of medical condition. Patient was counseled about treatment plan, medications, possible side effects, patientverbalized understanding. All questions were answered to the best of my ability. This discharge took greater then 30 minutes in planning, reviewing documentation, counseling the patient, and discussing with other team members." ASSESSMENT ASSESSMENT Assessment Obstructive uropathy due to right nephrolithiasis ? Acute pyelonephritis likely from above Reactive leukocytosis likely due to above borderline hypertension Obesity Date of Service: Feb 18, 2025 Billing Provider: LILLIAM MORRIS MD Common Visit Codes: 82523-BQO/OBS DISCH DAY >30min KARISSA COLLINS Feb 18, 2025 14:26 JONATHAN,KHAJA RESIDENT Feb 18, 2025 16:55 LILLIAM MORRIS MD Feb 19, 2025 10:43
[2025-02-19] MEDS ORDERED: HYDR-4798 PO (19:31)
[2025-02-19] MEDS ORDERED: IBUP-1455 PO (19:31)
[2025-02-19] MEDS ORDERED: ZOFR4T PO (19:31)
== END 2025-02-18 17:15 | disposition home or self-care (01) | DRG 463 ==
LOC: ER 06:10 → OVERFLOW 09:38 → CENTRAL 12:10
PROVIDERS: ADMIT Internal Medicine; ATTEND Internal Medicine
DX: N13.6 Pyonephrosis (principal); D72.829 Elevated white blood cell count, unspecified; E66.9 Obesity, unspecified; I10 Essential (primary) hypertension; E11.9 Type 2 diabetes mellitus without complications; K52.9 Noninfective gastroenteritis and colitis, unspecified; Z79.899 Other long term (current) drug therapy; Z82.49 Family history of ischemic heart disease and other diseases of the circulatory system; Z68.30 Body mass index [BMI] 30.0-30.9, adult
CPT/HCPCS: 36415; 74018; 74176; 80048; 80053; 80061; 80307; 81001; 83036; 83605; 83735; 84443; 84450; 84460; 85025; 85610; 85730; 87040; 87086; 96361; 96365; 96375; G0378; J1885; J2405; J2470; J2543

== ENCOUNTER 2025-02-19 12:09 | Emergency (ER) | payer MEDICAID ==
[~2025-02-19] VITALS: Ht 157.5 cm; Wt 82.3 kg
[~2025-02-19 12:09] MED LIST: CEPH250C PO; TAMS-35 PO
[2025-02-19 12:51] VITALS: PULSE 71; RESP 20; O2SAT 95
--- NOTE | 2025-02-19 12:59 | ED.PDOC ---
General HPI Comments 44y M who presents to the ED for chief complaint of abdominal pain. Pt states he has been having LLQ abdominal pain for the past 1 day. Pt states his pain is sharp, constant, rating the pain 8/10, with no noted exacerbating or relieving factors. Pt states he was admitted to for similar symptoms and hospitalized. Pt was found to have L sided 3 mm kidney stone and was given flomax and medications and discharged to return if pt pain returns and conservative management failed. Pt otherwise in the ED, denies any other symptoms at this time. Last bowel movement Denies fevers chills night sweats unintentional weight loss Denies nausea vomiting diarrhea Denies blood in the stool Denies sick contact with similar symptoms Denies new foods/medications Denies family history of GI cancer ETOH per week Denies urgency, frequency, hematuria Chief Complaint: Flank Pain Time Seen by MD: 12:57 Primary Care Provider: ? Reviewed notes: Medications, Allergies Allergies: Coded Allergies: NO KNOWN ALLERGIES (Unverified , 02/16/25) Home Meds Active Scripts Cephalexin (KEFLEX CAPSULE) 250 Mg Cp, 500 MG PO BID for 7 Days, #28 CAP Prov:DAVID CASTILLO RESIDENT 02/18/25 Tamsulosin Hcl (Flomax) 0.4 Mg Cap, 0.4 MG PO QPM for 14 Days, #14 CAP Prov:DAVID CASTILLO RESIDENT 02/18/25 Information Source: Patient Mode of Arrival: Ambulatory Past Medical History PAST MEDICAL HISTORY: HTN Surgical History: Denies all surgeries Family History Family History: Reviewed,noncontributory to illness, Unknown Social History Smoker: Non-Smoker Alcohol: Denies ETOH Use Drugs: Denies Drug Use Lives In: Home All Other Systems: Reviewed and Negative (see HPI) Physical Exam General Appearance: No Apparent Distress, Normal HEENT: Normal ENT Inspection, Pharynx Normal, TMs Normal Neck: Full Range of Motion, Non-Tender, Normal, Normal Inspection Respiratory: Chest Non-Tender, Lungs Clear, No Accessory Muscle Use, No Respiratory Distress, Normal Breath Sounds Cardiovascular: No Edema, No JVD, No Murmur, No Gallop, Normal Peripheral Pulses, Regular Rate/Rhythm Breast Exam: Deferred Gastrointestinal: Distended (mild abdominal distention), Tenderness (LLQ tender to palpation,) Genitalia: Deferred Pelvic: Deferred Rectal: Deferred Extremities: No calf tenderness, Normal capillary refill, Normal inspection, Normal range of motion, Non-tender, No pedal edema Musculoskeletal : Apperance: Normal Neurologic: Alert, wire galvanizer II-XII nml as Tested, No Motor Deficits, Normal Affect, Normal Mood, No Sensory Deficits Cerebellar Function: Normal Reflexes: Normal Skin: Dry, Normal Color, Warm Lymphatic: No Adenopathy Was a procedure done? Was a procedure done?: No Differential Diagnosis Kidney stone (Male): Pyelonephritis, Strain, Urolithiasis X-Ray, Labs, Meds, VS Vital Signs Date Time Temp Pulse Resp B/P (MAP) Pulse Ox O2 Delivery O2 Flow Rate FiO2 02/19/25 13:06 59 20 158/95 02/19/25 13:01 97.6 59 20 158/95 (116) 98 97.6 02/19/25 13:01 59 20 98 02/19/25 12:51 71 20 95 Room Air* 0 21 02/19/25 12:28 98.3 58 20 170/65 (100) 97 98.3 Lab Test 02/19/25 13:32 02/19/25 12:56 Range/Units Urine Color Yellow Yellow Urine Clarity Turbid H Clear Urine pH 5.5 5.0-9.0 Urine Specific [place] 1.028 1.001-1.035 Urine Protein Trace H Negative Urine Ketones Negative Negative Urine Blood 3+ H Negative /uL Urine Nitrite Negative Negative Urine Bilirubin Negative Negative Urine Urobilinogen Normal Negative mg/dL Urine Leukocyte Esterase Negative Negative /uL Urine RBC 515 0 - 3 /hpf Urine Microscopic WBC 1 0-3 /HPF Urine Squamous Epithelial Cells None seen <5 /hpf Urine Bacteria None seen None Seen /hpf Urine Mucus Few None Seen Urine Glucose Normal Normal mg/dL White Blood Count 9.0 # 4.4-10.8 10^3/uL Red Blood Count 5.12 4.5-5.90 10^6/uL Hemoglobin 16.3 13.5-17.5 g/dL Hematocrit 45.4 41.0-53.0 % Mean Corpuscular Volume 88.6 80.0-100.0 fL Mean Corpuscular Hemoglobin 31.9 28.0-32.0 pg Mean Corpuscular Hemoglobin Concent 36.0 32.0-36.0 g/dL Red Cell Distribution Width 13.4 11.8-14.3 % Platelet Count 222 140-450 10^3/uL Mean Platelet Volume 8.4 6.9-10.8 fL Neutrophils (%) (Auto) 76.8 37.0-80.0 % Lymphocytes (%) (Auto) 16.5 10.0-50.0 % Monocytes (%) (Auto) 5.3 0.0-12.0 % Eosinophils (%) (Auto) 1.1 0.0-7.0 % Basophils (%) (Auto) 0.3 0.0-2.0 % Neutrophils # (Auto) 6.9 1.6-8.6 10 ^3/uL Lymphocytes # (Auto) 1.5 0.4-5.4 10 ^3/uL Monocytes # (Auto) 0.5 0-1.3 10 ^3/uL Eosinophils # (Auto) 0.1 0-0.8 10 ^3/uL Basophils # (Auto) 0 0-0.2 10 ^3/uL Nucleated Red Blood Cells 0.3 % Sodium Level 138 136-145 mmol/L Potassium Level 3.9 3.5-5.1 mmol/L Chloride Level 103 98-107 mmol/L Carbon Dioxide Level 27 20-31 mmol/L Anion Gap 8 5-15 Blood Urea Nitrogen 14 9-23 mg/dL Creatinine 1.21 0.700-1.30 mg/dL Glomerular Filtration Rate Calc 77 >90 mL/min BUN/Creatinine Ratio 11.6 10.0-20.0 Serum Glucose 103 74-106 mg/dL Lactic Acid Level 1.2 0.4-2.0 mmol/L Calcium Level 9.6 8.7-10.4 mg/dL Lipase 33 12-53 U/L Current Medications Medications (Trade) Dose Ordered Sig/Tiarra Route Start Time Stop Time Status Last Admin Morphine Sulfate 4 mg ONCE ONCE IV 02/19/25 12:45 02/19/25 12:46 DC 02/19/25 13:06 Ondansetron HCl (Zofran) 4 mg ONCE ONCE IV 02/19/25 12:45 02/19/25 12:46 DC 02/19/25 13:[address] [address] Ph: [phone] DIAGNOSTIC IMAGING Diagnostic Imaging Report : [id number] Signed PATIENT: OLIMPIA SAMUELS ACCT: [id number] UNIT: [id number] : 1980 LOC: ER ROOM / BED: / AGE / SEX: 44 / M ADM STATUS: REG ER SERVICE [id number] ORDERING PHYSICIAN: KAT ARAMBULA NP PROCEDURE(s): ABPL - CT AB PEL WO CON-NO ORAL OR IV REASON: hx of recent stone + hydronephrosis. c/o acute urinary reten ORDER NUMBER(s): [id number], ACCESSION NUMBER(s): [id number] Indication: hx of recent stone + hydronephrosis. c/o acute urinary reten Technique: CT axial images of the abdomen and pelvis are obtained without contrast. Coronal and sagittal reformats were obtained. Radiation Dose Information: CTDI volume is 10.23 mGy. Dose-length product is 608.46 mGy*cm Comparison: CT CT AB PEL WO CON-NO ORAL OR IV on DOS: 02/16/25 FINDINGS: There is limited interpretation of the abdomen and pelvis without administration of intravenous contrast. Lung bases demonstrate no pleural effusion. Adrenal glands, spleen, pancreas and liver unremarkable in shape. No CT evidence for cholelithiasis. The right kidney demonstrates no hydronephrosis or nephrolithiasis. The left kidney demonstrates moderate left hydroureteronephrosis secondary to a 2 mm calculus at the left ureterovesicular junction. Stomach partially distended. Small bowel loops are normal in caliber. Colonic diverticular disease. Moderate volume stool in the colon. Normal appendix. Abdominal aortic atherosclerotic disease. Bladder is contracted. No free pelvic fluid. No inguinal lymphadenopathy. There is no aggressive osseous process. IMPRESSION: Moderate left hydroureteronephrosis secondary to a 2 mm calculus at the left ureterovesicular junction. Colonic diverticular disease. Other findings as described ATED BY: SADI GRIER MD DICTATED DATE/TIME: 02/19/25 1325 SIGNED BY: SADI GRIER MD SIGNED DATE/TIME: 02/19/25 1325 CC: X-Ray, Labs, Meds, VS Comment 44y M who presents to the ED for chief complaint of abdominal pain. Patient arrives alert and oriented, ABC's intact, afebrile, vital signs stable, saturating well in room air Peripheral IV insertion+ labs were ordered. CBC was ordered to exclude anemia, blood loss, or infection. BMP was ordered to exclude electrolyte abnormalities, renal failure, dehydration, hyperglycemia CMP was ordered to exclude electrolyte abnormalities, renal failure, dehydration, hyperglycemia and/or liver enzyme abnormalities. PT and INR were ordered to rule out coagulopathy. Troponin and BNP were ordered to rule out myocardial infarction, or congestive heart failure. Urinalysis was ordered to rule out UTI or hematuria. Diagnostic imaging ordered by me and results interpreted by radiology : Labs in the ED showed (pertinent+ and then pertinent-) Patient was given:_. Tolerated medications with no adverse reaction. Additional MDM Review of External, Non-ED records: External records reviewed. Discussion with independent historian (EMS, family) history obtained from the patient/parents (if applicable) at bedside Chronic conditions affecting care: None Social determinants of health affecting care: None Consideration of admission (observation or admission): I considered escalation of care to admission for this patient, however given the reassuring workup, the patient is safe for outpatient management. Discussion with the Radiology: No Tests considered but not performed: Prescription medication considered but not given: 12 lead EKG interpretation: Patient Education/Counseling: Diagnosis, Treatment Family Education/Counseling: No Family Present SEPSIS Sepsis Screen Date sepsis recognized/suspect: Feb 19, 2025 Time Sepsis recognized/suspect: 8 Recent Procedure: No On Antibiotic Therapy: No Respiratory Rate >20: No Heart Rate >90: No Temp<36 C (96.8 F) or >38.3 C: No SBP <90 or MAP <65 mmHG: No New Acute Mental Status Change: No Is the patient on CPAP, BIPAP,: No Physician Orders Bladder Scan (02/19/25 12:33) Bladder Scan (02/19/25 ) Heplock Iv (02/19/25 ) Ct Ab Pel Wo Con-No Oral Or Iv (02/19/25 12:33) Vital Signs Date Time Temp Pulse Resp B/P (MAP) Pulse Ox O2 Delivery O2 Flow Rate FiO2 02/19/25 13:06 59 20 158/95 02/19/25 13:01 97.6 59 20 158/95 (116) 98 97.6 02/19/25 13:01 59 20 98 02/19/25 12:51 71 20 95 Room Air* 0 21 02/19/25 12:28 98.3 58 20 170/65 (100) 97 98.3 Laboratory Tests Test 02/19/25 12:56 Lactic Acid Level 1.2 mmol/L (0.4-2.0) White Blood Count 9.0 10^3/uL (4.4-10.8) # Medications Medications Dose Ordered Sig/Tiarra Route Start Time Stop Time Status Last Admin Dose Admin Morphine Sulfate 4 mg ONCE ONCE IV 02/19/25 12:45 02/19/25 12:46 DC 02/19/25 13:06 Ondansetron HCl 4 mg ONCE ONCE IV 02/19/25 12:45 02/19/25 12:46 DC 02/19/25 13:06 Departure 1 Departure Time of Disposition: 14:47 Impression: Primary Impression: Left flank pain Disposition: HOME / SELF CARE / HOMELESS Condition: Fair Additional Instructions: Follow up with the PCP and with Urology outpatient. Continue with the medications were prescribed. Strict return precautions if you have any worsening symptoms Critical Care Note Critical Care Time?: No Stability Stability form required: No Heart Score Heart Score: Heart Score Response (Comments) Value History N/A 0 EKG N/A 0 Age N/A 0 Risk Factors N/A 0 Troponin N/A 0 Total 0 I personally scribed for KAT ARAMBULA ORACLE TECHNICAL ARCHITECT (NUSRATOMA) on 02/19/25 at 12:59. Electronically submitted by Atif Bates ([email or web address]). I personally scribed for KAT ARAMBULA NP (NUSRATOMA) on 02/19/25 at 13:01. Electronically submitted by Atif Bates ([email or web address]). I personally scribed for KAT ARAMBULA NP (NUSRATOMA) on 02/19/25 at 14:31. Electronically submitted by Atif Bates ([email or web address]). KAT ARAMBULA NP Feb 19, 2025 12:59
[2025-02-19 13:01] VITALS: TEMP 97.6; O2SAT 98
[2025-02-19] MEDS: ONDANSETRON HCL 4 MG/2 ML VIAL IV ONE (13:06)
[2025-02-19] MEDS: MORPHINE SULFATE 4 MG/ML SYR/VIAL IV ONE (13:06)
[2025-02-19 13:19] LABS: Hematocrit 45.4 % (41.0-53.0); Hemoglobin 16.3 g/dL (13.5-17.5); Mean Corpuscular Hemoglobin 31.9 pg (28.0-32.0); Mean Corpuscular Volume 88.6 fL (80.0-100.0); Nucleated Red Blood Cells % 0.3 %
--- NOTE | 2025-02-19 13:26 | DVH ---
Indication: hx of recent stone + hydronephrosis. c/o acute urinary reten Technique: CT axial images of the abdomen and pelvis are obtained without contrast. Coronal and sagit moriah reformats were obtained. Radiation Dose Information: CTDI volume is 10.23 mGy. Dose-length product is 608.46 mGy*cm Comparison: CT CT AB PEL WO CON-NO ORAL OR IV on DOS: 02/16/25 FINDINGS: There is limited interpretation of the abdomen and pelvis without administration of intravenous contr ast. Lung bases demonstrate no pleural effusion. Adrenal glands, spleen, pancreas and liver unremarkable in shape. No CT evidence for cholelithiasis. The right kidney demonstrates no hydronephrosis or nephrolithiasis. The left kidney demonstrates mod erate left hydroureteronephrosis secondary to a 2 mm calculus at the left ureterovesicular junction. Stomach partially distended. Small bowel loops are normal in caliber. Colonic diverticular disease. Moderate volume stool in the colon. Normal appendix. Abdominal aortic atherosclerotic disease. Bladder is contracted. No free pelvic fluid. No inguinal ly mphadenopathy. There is no aggressive osseous process. IMPRESSION: Moderate left hydroureteronephrosis secondary to a 2 mm calculus at the left ureterovesicular junctio n. Colonic diverticular disease. Other findings as described
[2025-02-19 13:28] LABS: Chloride 103 mmol/L (98-107); Potassium 3.9 mmol/L (3.5-5.1); Sodium 138 mmol/L (136-145)
[2025-02-19 13:29] LABS: Anion Gap 8 (5-15); Carbon Dioxide 27 mmol/L (20-31)
[2025-02-19 13:30] LABS: Calcium 9.6 mg/dL (8.7-10.4)
[2025-02-19 13:34] LABS: BUN/Creatinine Ratio 11.6 (10.0-20.0); Blood Urea Nitrogen 14 mg/dL (9-23); Glucose 103 mg/dL (74-106)
[2025-02-19 13:35] LABS: Lipase 33 U/L (12-53)
[2025-02-19 14:18] LABS: Urine Protein, UAD TRACE (Negative)
[2025-02-19 15:29] VITALS: BP 131/83; PULSE 89; RESP 18
[2025-02-19] MEDS ORDERED: HYDR-4798 PO (19:31)
[2025-02-19] MEDS ORDERED: ZOFR4T PO (19:31)
[2025-02-19] MEDS ORDERED: IBUP-1455 PO (19:31)
== END 2025-02-19 15:27 | disposition home or self-care (01) ==
LOC: ER 12:09
DX: R10.32 Left lower quadrant pain (principal); I10 Essential (primary) hypertension; Z79.899 Other long term (current) drug therapy
CPT/HCPCS: 36415; 74176; 80048; 81001; 83605; 83690; 85025; 96374; 96375; 99285; J2270; J2405

== ENCOUNTER 2025-02-19 18:44 | Emergency (ER) | payer MEDICAID ==
[~2025-02-19] VITALS: Ht 172.7 cm; Wt 82.0 kg
[2025-02-19] MEDS: KETOROLAC TROMETH 60MG/2ML VIAL IM ONE (19:00)
[2025-02-19] MEDS: HYDROcodone-ACET 10/325MG TAB PO ONE (19:00)
[2025-02-19] MEDS: ONDANSETRON ODT 4 MG TAB PO ONE (19:00)
[2025-02-19 19:02] VITALS: BP 151/92; PULSE 70; RESP 16; TEMP 99.4; O2SAT 97
[2025-02-19] MEDS ORDERED: HYDR-4798 PO (19:31)
[2025-02-19] MEDS ORDERED: ZOFR4T PO (19:31)
[2025-02-19] MEDS ORDERED: IBUP-1455 PO (19:31)
--- NOTE | 2025-02-19 19:32 | ED.PDOC ---
General HPI Comments [age] Year old male with a history of hypertension brought in by spouse for evaluation of ongoing left-sided abdominal and flank pain associated with nausea. Patient was seen here on 02/15/25, diagnosed with a kidney stone and hydronephrosis, was admitted and discharged on 02/18/2025 on Keflex and Flomax. He returned this morning for recurrent pain, underwent workup in the ED including blood and urine tests and repeat CT abdomen and pelvis which showed the following: IMPRESSION: Moderate left hydroureteronephrosis secondary to a 2 mm calculus at the left ureterovesicular junction. Colonic diverticular disease. Other findings as described UA was positive for blood but was not consistent with UTI, and other labs were unremarkable. Patient states he told after this morning's ED visit that he would be prescribed pain medication, however when he went to the pharmacy there was no prescription for pain medication. He states he decided to return to the ED now for recurrent pain. He denies any fever, vomiting, diarrhea, constipation or dysuria. Chief Complaint: Flank Pain Time Seen by MD: 18:50 Primary Care Provider: ? Allergies: Coded Allergies: NO KNOWN ALLERGIES (Unverified , 02/16/25) Home Meds Active Scripts Ondansetron Odt 4MG Tab (ZOFRAN PO) 4 Mg Tb, 4 MG PO TID PRN, #30 TAB Prn nausea or vomiting ODT TAB-DISSOLVE IN MOUTH, THEN SWALLOW Prov:ELIZABETH SPRINGER MD 02/19/25 Hydrocodone-Acetaminophen (Hydrocodone Bitartrate/AC 10-325 mg) 1 Tab Tab, 1-2 TAB PO Q6HP PRN, #20 TAB Prn pain Prov:ELIZABETH SPRINGER MD 02/19/25 Ibuprofen Micronized (Ibuprofen) 800 Mg Tab, 800 MG PO Q8HP PRN, #30 TAB Prn pain. Take with food. Prov:ELIZABETH SPRINGER MD 02/19/25 Cephalexin (KEFLEX CAPSULE) 250 Mg Cp, 500 MG PO BID for 7 Days, #28 CAP Prov:DAVID CASTILLO 02/18/25 Tamsulosin Hcl (Flomax) 0.4 Mg Cap, 0.4 MG PO QPM for 14 Days, #14 CAP Prov:DAVID CASTILLO RESIDENT 02/18/25 Information Source: Patient, Spouse Mode of Arrival: Ambulatory Past Medical History PAST MEDICAL HISTORY: HTN Past Medical History (Other): Kidney stone Surgical History: Denies all surgeries Family History Family History: Reviewed,noncontributory to illness Social History Smoker: Non-Smoker Alcohol: Denies ETOH Use Drugs: Denies Drug Use Lives In: Home All Other Systems: Reviewed and Negative (Comprehensive systems review obtained and negative except for what is stated in the HPI.) Physical Exam General Appearance: Mild Distress HEENT: Other (Pupils and face symmetric. Moist mucous membranes.) Neck: Full Range of Motion, Normal Inspection Respiratory: Lungs Clear, No Accessory Muscle Use, No Respiratory Distress, Normal Breath Sounds Cardiovascular: No Edema, No JVD, Regular Rate/Rhythm Breast Exam: Deferred Gastrointestinal: Soft, Tenderness (Left-sided mid abdominal and flank tenderness to palpation) Genitalia: Deferred Pelvic: Deferred Rectal: Deferred Extremities: Normal inspection, Normal range of motion, Non-tender, No pedal edema Neurologic: Alert (Oriented x4), Normal Affect, Normal Mood, Other (Ambulatory) Cerebellar Function: NOT DONE Reflexes: NOT DONE Skin: Dry, Normal Color, Warm Lymphatic: NOT DONE Was a procedure done? Was a procedure done?: No Differential Diagnosis Kidney stone (Female): N/A Kidney stone (Male): Renal failure, Strain, Urinary obstruction, Urolithiasis, Renal infarction, Urinary tract infection X-Ray, Labs, Meds, VS Vital Signs Date Time Temp Pulse Resp B/P (MAP) Pulse Ox O2 Delivery O2 Flow Rate FiO2 02/19/25 19:02 99.4 70 16 151/92 (111) 97 99.4 X-Ray, Labs, Meds, VS Comment 44-year-old male with a history of recently diagnosed kidney stone returning to the ED for left-sided abdominal and flank pain due to a recently diagnosed kidney stone. Patient stated he could not warp picker any pain meds from the pharmacy because there was no prescription Vitals remarkable for BP 151/92 Exam remarkable for left-sided mid abdominal and left flank tenderness to palpation Rhythm strip independently interpreted by me: Sinus rhythm, rate 70, no ectopy. Patient treated with the following in the ED: Toradol 60 mg IM, [place] 10/325 mg 2 tabs p.o., Zofran ODT 4 mg p.o. On re-evaluation, patient states pain has improved. Vitals were stable. Patient underwent repeat kidney stone workup this morning in the ED, which was unremarkable except that the stone is now at the left UVJ. Patient's pain is controlled in the ED, and I am comfortable discharging him with a prescription for [place], ibuprofen and Zofran. He was advised to continue Keflex and Flomax as directed. Time of 1ST Reevaluation: 19:29 Reevaluation 1ST: Unchanged Patient Education/Counseling: Diagnosis, Treatment, Need For Follow Up Family Education/Counseling: Diagnosis, Treatment, Need For Follow Up SEPSIS Sepsis Screen Date sepsis recognized/suspect: Feb 19, 2025 Time Sepsis recognized/suspect: 1902 Recent Procedure: No On Antibiotic Therapy: No Respiratory Rate >20: No Heart Rate >90: No Temp<36 C (96.8 F) or >38.3 C: No SBP <90 or MAP <65 mmHG: No New Acute Mental Status Change: No Is the patient on CPAP, BIPAP,: No Vital Signs Date Time Temp Pulse Resp B/P (MAP) Pulse Ox O2 Delivery O2 Flow Rate FiO2 02/19/25 19:02 99.4 70 16 151/92 (111) 97 99.4 Departure 1 Departure Time of Disposition: 19:30 Impression: Primary Impression: Ureteral colic Disposition: HOME / SELF CARE / HOMELESS Condition: Stable Additional Instructions: I have prescribed pain medication and medication for nausea. Continue Keflex and Flomax as directed. Return to ER for persistent or worsening symptoms. e-Prescriptions Ondansetron Odt 4MG Tab (ZOFRAN PO) 4 Mg Tb 4 MG PO TID PRN, #30 TAB Prn nausea or vomiting ODT TAB-DISSOLVE IN MOUTH, THEN SWALLOW Prov: ELIZABETH SPRINGER MD 02/19/25 Hydrocodone-Acetaminophen (Hydrocodone Bitartrate/AC 10-325 mg) 1 Tab Tab 1-2 TAB PO Q6HP PRN, #20 TAB Prn pain Prov: ELIZABETH SPRINGER MD 02/19/25 Ibuprofen Micronized (Ibuprofen) 800 Mg Tab 800 MG PO Q8HP PRN, #30 TAB Prn pain. Take with food. Prov: ELIZABETH SPRINGER MD 02/19/25 Discharged With: Spouse Critical Care Note Critical Care Time?: No Stability Stability form required: No Heart Score Heart Score: Heart Score Response (Comments) Value History N/A 0 EKG N/A 0 Age N/A 0 Risk Factors N/A 0 Troponin N/A 0 Total 0 AU ELIZABETH QUIROZ MD Feb 19, 2025 19:32
== END 2025-02-20 03:50 | disposition home or self-care (01) ==
LOC: ER 18:44
DX: N23 Unspecified renal colic (principal); I10 Essential (primary) hypertension; Z87.442 Personal history of urinary calculi; Z79.899 Other long term (current) drug therapy